=== PATIENT | female | born 1980 | race Two or more races ===

== ENCOUNTER 2017-11-16 05:38 | Inpatient (IN) | payer SELFPAY ==
[2017-11-16] MEDS ORDERED: TERBUTALINE 1 MG/ML VIAL. SQ (05:45)
[2017-11-16] MEDS ORDERED: ACETAMINOPHEN 325 MG TABLET. PO ×2 (05:45→19:15)
[2017-11-16] MEDS ORDERED: fentaNYL PF VIAL 100 MCG/2 ML VIAL IV ×2 (05:45)
[2017-11-16] MEDS ORDERED: 0.9 % SODIUM CHLORIDE 10 ML DISP.SYRIN. IV ×2 (05:45→19:15)
[2017-11-16] MEDS ORDERED: BUTORPHANOL 2 MG/ML VIAL. IV (05:45)
[2017-11-16] MEDS ORDERED: OXYTOCIN 30 UNIT/500 ML PREMIX 500 ML IV ×2 (05:45→19:15)
[2017-11-16] MEDS ORDERED: CITRIC ACID/SODIUM CITRATE 30 ML SOLUTION. PO (05:45)
[2017-11-16] MEDS ORDERED: LIDOCAINE 1% PF 30 ML VIAL. INJ (05:45)
[2017-11-16] MEDS ORDERED: ONDANSETRON PF 4 MG/2 ML VIAL. IV ×2 (05:45→13:15)
[2017-11-16] MEDS: IV RINGERS,LACTATED 1000ML 1,000 ML IV ×2 (06:21→09:52)
[2017-11-16] MEDS: DOCUSATE SODIUM 283 MG/5 ML ENEMA. PR (06:26)
[2017-11-16] MEDS: OXYTOCIN 30 UNIT/500 ML PREMIX 500 ML IV (06:26)
[2017-11-16 07:04] LABS: BILIRUBIN,URINE NEGATIVE (NEG); GLUCOSE,URINE NEGATIVE (NEG); NITRITE,URINE NEGATIVE (NEG); PH,URINE 6.5; PROTEIN,URINE NEGATIVE (NEG-TRACE); UROBILINOGEN,URINE 0.2 mg/dL (0.2 mg/dL)
[2017-11-16 07:06] LABS: HEMOGLOBIN 12.9 g/dL (12.0-15.5); MEAN CORPUSCULAR HEMOGLOBIN 31 pg (25-35); MEAN CORPUSCULAR HGB CONC 34 g/dL (31-37); MEAN CORPUSCULAR VOLUME 91 fL (79-100); PLATELET COUNT 137 x10^3/uL (140-400); RED BLOOD COUNT 4.16 x10^6/uL (3.50-5.40); RED CELL DISTRIBUTION WIDTH 15.2 % (11.5-14.5); WHITE BLOOD COUNT 10.5 x10^3/uL (4.0-11.0)
[2017-11-16 07:34] LABS: BACTERIA,URINE 0 /HPF (0-FEW); RBC,URINE 0 /HPF (0-2); SQUAMOUS EPITHELIAL CELL,UR FEW /LPF; WBC,URINE 0 /HPF (0-4)
[2017-11-16] MEDS ORDERED: L&D EPIDURAL SYRINGE 50 ML EP (13:06)
[2017-11-16] MEDS ORDERED: ROPIVacaine 0.2% IN 0.9%NACL PF 40 MG/20 ML DISP.SYRIN. (13:06)
[2017-11-16] MEDS: fentaNYL PF VIAL 100 MCG/2 ML VIAL EPI (13:12)
[2017-11-16] MEDS ORDERED: ROPIVacaine 0.2% PF 10 ML VIAL. EPI (13:15)
[2017-11-16] MEDS ORDERED: L&D EPIDURAL CASSETTE 100 ML EP (13:15)
[2017-11-16] MEDS ORDERED: ePHEDrine PF IN SALINE 50 MG/5 ML DISP.SYRIN IV (13:15)
[2017-11-16] MEDS ORDERED: NALOXONE 0.4 MG/ML VIAL. IV (13:15)
[2017-11-16] MEDS: L&D EPIDURAL SYRINGE 50 ML EP (16:54)
[2017-11-16] MEDS ORDERED: MAG HYDROX/ALUMINUM HYD/SIMETH 30 ML ORAL.SUSP PO (19:15)
[2017-11-16] MEDS ORDERED: ZOLPIDEM 5 MG TABLET. PO (19:15)
[2017-11-16] MEDS ORDERED: HYDROCORTISONE 1% TOPICAL OINTMENT 30GM TUBE. TP (19:15)
[2017-11-16] MEDS ORDERED: diphenhydrAMINE HCL 25 MG CAPSULE PO (19:15)
[2017-11-16] MEDS ORDERED: PHENYLEPH/MINERAL OIL/PETROLAT RECTAL OINTMENT 28GM TUBE. RC (19:15)
[2017-11-16] MEDS ORDERED: SIMETHICONE 80 MG TAB.CHEW PO (19:15)
[2017-11-16] MEDS ORDERED: BENZOCAINE 20% TOPICAL AEROSOL SPRAY 57GM CAN. TP (19:15)
[2017-11-16] MEDS: IBUPROFEN 800 MG TABLET. PO (21:02)
[2017-11-17] MEDS: HYDROcodone/APAP 5/325MG 1 TAB TABLET PO (04:54)
[2017-11-17 06:01] LABS: HEMATOCRIT 37.4 % (36.0-47.0)
[2017-11-17 06:16] LABS: RPR Non Reactive (Non Reactive)
[2017-11-17] MEDS ORDERED: FERROUS SULFATE 325 MG TABLET. PO (08:00)
[2017-11-17] MEDS: IBUPROFEN 800 MG TABLET. PO ×2 (08:09→19:20)
[2017-11-17] MEDS: MAGNESIUM HYDROXIDE 2,400 MG/30 ML ORAL.SUSP. PO (08:09)
[2017-11-18] MEDS: IBUPROFEN 800 MG TABLET. PO (08:36)
== END 2017-11-18 18:35 | disposition home or self-care (01) | DRG 775 ==
LOC: 3 SO LND 05:38 → 3 NORTH 21:20
PROC: 10E0XZZ Delivery of Products of Conception, External Approach (ICD-10-PCS; principal; 2017-11-16)
PROC: 10907ZC Drainage of Amniotic Fluid, Therapeutic from Products of Conception, Via Natural or Artificial Opening (ICD-10-PCS; 2017-11-16)
PROC: 3E0P3VZ Introduction of Hormone into Female Reproductive, Percutaneous Approach (ICD-10-PCS; 2017-11-16)
PROC: 3E0R3BZ Introduction of Anesthetic Agent into Spinal Canal, Percutaneous Approach (ICD-10-PCS; 2017-11-16)
PROC: 00HU33Z Insertion of Infusion Device into Spinal Canal, Percutaneous Approach (ICD-10-PCS; 2017-11-16)
DX: O36.63X0 Maternal care for excessive fetal growth, third trimester, not applicable or unspecified (principal); O09.43 Supervision of pregnancy with grand multiparity, third trimester; Z37.0 Single live birth; Z3A.39 39 weeks gestation of pregnancy
CPT/HCPCS: 36415; 81001; 85014; 85027; 86593; 86850; 86900; 86901; J2590; J2795; J3010; J7120